=== PATIENT | male | born 1945 | race Caucasian/White ===

== ENCOUNTER 2022-03-13 20:26 | Inpatient (IN) ==
--- NOTE | 2022-03-13 20:59 | DR.ABDMALE ---
HPI Time seen Time Seen by Provider: 03/13/22 20:59 PCP Primary Care Physician: RIMA Complaint Chief Complaint Doctors Comments: 76 y/o male presents for evaluation. Was fine yesterday. Started having abdominal pain this am. Has steadily progressed all day, worsened tonight. + nausea, one episode of vomiting on arrival to the ER. Last BM normal, last pm. No fever, chills, urinary difficulty. No h/o previous abd surgeries. Denies recent illness. Chief Complaint:: PT C/O MID AND LEFT ABD PAIN WITH N/V X 1 DAY. COVID-19 Coronavirus risk:travel/contact w/high risk person: No Has patient experienced Coronavirus symptoms: No Reviewed Nurses Notes Review: Yes Source History provided by:: Patient Mode of arrival Mode of Arrival: Ambulatory Timing Onset of Chief Complaint: 03/13/22 PMH PMH Past Medical History: Yes Past Medical History: Dyslipidemia Past Surgical History: No Family History History of Family Medical Conditions: No Social History Does patient currently use any type of tobacco product: No Have you used tobacco products in the last 12 months: No Type of Tobacco Use: None Does any household member use tobacco: No Alcohol Use: None Do you use any recreational Drugs:: No Lives With: Alone Lives Where: Home Travel Risk Coronavirus risk:travel/contact w/high risk person: No Has patient experienced Coronavirus symptoms: No Infectious screening In the last 2 months have you had wt loss of >10#?: NO Have you had fever, night sweats or hemotysis?: No Have you traveled outside the country in the last 6 months?: No Isolation: Standard ROS Review of Systems Constitutional: No Symptoms Reported Eyes: No Symptoms Reported ENTM: No Symptoms Reported Respiratoy: No Symptoms Reported Cardiovascular: No Symptoms Reported Gastrointestinal/Abdominal: See HPI Genitourinary: No Symptoms Reported Neurological: No Symptoms Reported Musculoskeletal: No Symptoms Reported Integumentary: No Symptoms Reported Hematologic/Lymphatic: No Symptoms Reported Psychiatric: No Symptoms Reported All Other Systems: Reviewed and Negative PE Vital Signs Vital Signs: Temp Pulse Resp BP Pulse Ox O2 Del Method 03/13/22 21:49 18 03/13/22 21:19 18 03/13/22 20:40 97.6 F 59 L 18 159/83 97 Room Air General General Appearance: Alert and In No Apparent Distress Eyes Eye exam: PERRL and EOMI ENT ENT Exam: Mucous Membranes Moist Neck Neck Exam: Normal Inspection and Full ROM Respiratory Respiratory Exam: Normal Lung Sounds Bilat; negative Accessory Muscle Use or Respiratory Distress Cardiovascular Cardiovascular Exam: Regular Rate, Normal Rhythm and Normal Heart Sounds Abdominal Exam Abdominal Exam: Normal Bowel Sounds, Soft and Tenderness (RUQ/RLQ, with guarding, no rebound.) Back Back Exam: Normal Inspection; negative (R) CVA Tenderness or (L) CVA Tenderness Extremeties Extremities Exam: Normal Inspection and Full ROM; negative Edema Neurologic Neurological Exam: Alert, Oriented X3 and CN II-XII Intact; negative Motor Sensory Deficit Skin Skin Exam: Warm and Dry MDM Differential Diagnosis Differential Diagnosis: Appendicitis, Cholcystitis, Cholelethiasis, Diverticular disease, Gastroenteritis, Urinary tract infection and Urolithiasis COURSE Treatment Treatment: Pt with R sided abdominal pain - RUQ/RLQ. W/u initiated. Givne iV fluids, IV zofran/morphine. 2317 - pt feeling better, + bull ladle tender on the R side. Labs acceptable. CT of the abd/pelvis done with IV contrast. + distended stomach, + loops of small bowel with air fluid levels, concerning for SBO. Pt with no previous h/o abdominal surgery. Will recommend NG tube to decompress the stomach, small bowels. Will admit for observation. Discussed with Dr Chacon, accepts the admission. ROR Labs Reviewed Laboratory Results Reviewed?: Yes Result Diagrams: 03/13/22 21:10 03/13/22 21:10 Laboratory: WBC 10.0 X10^3/uL (3.6-10.0) 03/13/22 21:10 RBC 4.88 X10^6/uL (4.7-6.0) 03/13/22 21:10 Hgb 14.9 g/dL (13.5-18.0) 03/13/22 21:10 Hct 42.3 % (42.0-54.0) 03/13/22 21:10 MCV 86.8 fL (80.0-100.0) 03/13/22 21:10 MCH 30.6 pg (27.0-34.0) 03/13/22 21:10 MCHC 35.2 g/dL (33.0-35.0) H 03/13/22 21:10 RDW 13.1 % (11.6-16.5) 03/13/22 21:10 Plt Count 248 X10^3/uL (150.0-450.0) 03/13/22 21:10 MPV 8.0 fL (7.4-11.0) 03/13/22 21:10 Neut % (Auto) 63.1 % (42.0-75.0) 03/13/22 21:10 Lymph % (Auto) 25.1 % (21.0-51.0) 03/13/22 21:10 [place] % (Auto) 8.9 % (0.0-13.0) 03/13/22 21:10 Eos % (Auto) 2.0 % (0.9-2.9) 03/13/22 21:10 Baso % (Auto) 0.9 % (0.2-1.0) 03/13/22 21:10 Neut # (Auto) 6.3 x10^3/uL (2.2-4.8) H 03/13/22 21:10 Lymph # (Auto) 2.5 X10^3/uL (1.3-2.9) 03/13/22 21:10 [place] # (Auto) 0.9 x10^3/uL (0.3-0.8) H 03/13/22 21:10 Eos # (Auto) 0.2 x10^3/uL (0.0-0.2) 03/13/22 21:10 Baso # (Auto) 0.1 X10^3/uL (0.0-0.1) 03/13/22 21:10 Absolute Nucleated RBC 0.0 /100WBC 03/13/22 21:10 Sodium 143 mmol/L (136-145) 03/13/22 21:10 Corrected Sodium 144 mmol/L (136-145) 03/13/22 21:10 Potassium 4.1 mmol/L (3.5-5.1) 03/13/22 21:10 Chloride 103 mmol/L (98-107) 03/13/22 21:10 Carbon Dioxide 30.8 mmol/L (21-32) 03/13/22 21:10 BUN 22 mg/dL (7-18) H 03/13/22 21:10 Creatinine 1.35 mg/dL (0.70-1.30) H 03/13/22 21:10 Est GFR (MDRD) Af Amer > 60 (>60) 03/13/22 21:10 Est GFR (MDRD) Non-Af 55 (>60) L 03/13/22 21:10 Glucose 130 mg/dL (65-99) H 03/13/22 21:10 Calcium 9.0 mg/dL (8.5-10.1) 03/13/22 21:10 Corrected Calcium TNP 03/13/22 21:10 Total Bilirubin 0.50 mg/dL (0.2-1.0) 03/13/22 21:10 AST 20 Units/L (15-37) 03/13/22 21:10 ALT 20 Units/L (12-78) 03/13/22 21:10 Alkaline Phosphatase 45 Units/L (46-116) L 03/13/22 21:10 Total Protein 7.5 g/dL (6.4-8.2) 03/13/22 21:10 Albumin 4.4 g/dL (3.4-5.0) 03/13/22 21:10 Globulin 3.1 g/dL (2.5-4.5) 03/13/22 21:10 Albumin/Globulin Ratio 1.4 Ratio (1.1-2.1) 03/13/22 21:10 Lipase 80 Units/L (73-393) 03/13/22 21:10 Specimen Type Clean catch urine 03/13/22 22: Urine Color Pale yellow (YELLOW) 03/13/22: Urine Appearance Clear (CLEAR) 03/13/22 22: Urine pH 5.0 (5.0 - 8.0) 03/13/22 22: Ur Specific [place] 1.020 (1.000-1.030) 03/13/22 22: Urine Protein Negative (NEGATIVE) 03/13/22 22: Urine Glucose (UA) Negative (NEGATIVE) 03/13/22 22: Urine Ketones Negative (NEGATIVE) 03/13/22 22: Urine Blood Negative (NEGATIVE) 03/13/22 22: Urine Nitrite Negative (NEGATIVE) 03/13/22 22: Urine Bilirubin Negative (NEGATIVE) 03/13/22 22: Urine Urobilinogen Normal (NORMAL) 03/13/22 22:27 Ur Leukocyte Esterase Negative (NEGATIVE) 03/13/22 22:27 Opioid Opioid Risk Tool Age (Rk box if 16-45): No History of Preadolescent Sexual Abuse: No Total: 0 Total Score Risk Category: Low Risk Copyright: Juan SWEENEY predicting aberrant behaviors Discharge Plan Diagnosis Discharge Problem: Small bowel obstruction Discharge Plan Patient Disposition: ADMITTED INPATIENT Condition: Stable Health Concerns: Post Hospitalization: new medications and changes needed to prevent readmission or further decline. Pt educated and given instructions on all concerns. Plan of Treatment: Continue with present treatment and follow up plan. Pt is to keep follow up appointment as instructed and take medications as ordered. Orders to Discharge Patient Discharge Orders: Transfer (Routine); Ordered 03/13/22 Ordered By: Deric Kirby Follow ups/Referrals Follow ups/Referrals: WILNER PAUL [Primary Care Provider] - 3 days
[2022-03-13] MEDS ORDERED: ZOFRAN INJ 4 MG VIAL IVP ONE (21:03)
[2022-03-13] MEDS ORDERED: MORPHINE SULFATE INJ 4 MG IVP ONE (21:03)
[2022-03-13] MEDS ORDERED: NS 500 ML IV 500 ML IV ONE ×2 (21:04→21:06)
[2022-03-13] MEDS ORDERED: MORPHINE SULFATE INJ 4 MG ONE (21:06)
[2022-03-13] MEDS ORDERED: ZOFRAN INJ 4 MG VIAL ONE (21:06)
[2022-03-13 21:31] LABS: BASOPHILS # (AUTO) 0.1 X10^3/uL (0.0-0.1); BASOPHILS % (AUTO) 0.9 % (0.2-1.0); EOSINOPHILS # (AUTO) 0.2 x10^3/uL (0.0-0.2); HEMATOCRIT 42.3 % (42.0-54.0); HEMOGLOBIN 14.9 g/dL (13.5-18.0); LYMPHOCYTES # (AUTO) 2.5 X10^3/uL (1.3-2.9); LYMPHOCYTES % (AUTO) 25.1 % (21.0-51.0); MEAN CORPUSCULAR HEMOGLOBIN 30.6 pg (27.0-34.0); MEAN CORPUSCULAR HGB CONC 35.2 g/dL (33.0-35.0); MEAN CORPUSCULAR VOLUME 86.8 fL (80.0-100.0); MONOCYTES # (AUTO) 0.9 x10^3/uL (0.3-0.8); MONOCYTES % (AUTO) 8.9 % (0.0-13.0); NEUTROPHILS # (AUTO) 6.3 x10^3/uL (2.2-4.8); NEUTROPHILS % (AUTO) 63.1 % (42.0-75.0); RED BLOOD COUNT 4.88 X10^6/uL (4.7-6.0); RED CELL DISTRIBUTION WIDTH 13.1 % (11.6-16.5)
[2022-03-13 21:36] LABS: ALANINE AMINOTRANSFERASE 20 Units/L (12-78); ALBUMIN 4.4 g/dL (3.4-5.0); ALKALINE PHOSPHATASE 45 Units/L (46-116); ASPARTATE AMINO TRANSFERASE 20 Units/L (15-37); BLOOD UREA NITROGEN 22 mg/dL (7-18); CARBON DIOXIDE 30.8 mmol/L (21-32); CHLORIDE 103 mmol/L (98-107); COR NA(FOR HYPERGLY) 144 mmol/L (136-145); CREATININE 1.35 mg/dL (0.70-1.30); LIPASE 80 Units/L (73-393); SODIUM 143 mmol/L (136-145); TOTAL PROTEIN 7.5 g/dL (6.4-8.2); eGFR NON BLACK RACES 55 (>60)
[2022-03-13 22:33] LABS: BILIRUBIN,URINE NEGATIVE (NEGATIVE); BLOOD/HEMOGLOBIN,URINE NEGATIVE (NEGATIVE); GLUCOSE, URINE NEGATIVE (NEGATIVE); KETONES,URINE NEGATIVE (NEGATIVE); LEUKOCYTE ESTERASE ,URINE NEGATIVE (NEGATIVE); NITRITES,URINE NEGATIVE (NEGATIVE); PROTEIN,URINE NEGATIVE (NEGATIVE); UROBILINOGEN,URINE NORMAL (NORMAL)
[2022-03-13 22:39] LABS: APPEARANCE,URINE CLEAR (CLEAR); COLOR,URINE PALE YELLOW (YELLOW)
--- NOTE | 2022-03-13 22:41 | CT ---
HISTORYPT C/O MID AND LEFT ABD PAIN WITH N/V X 1 DAY.STUDYABDOMEN/PELVIS WITH CONCOMPARISONNoneTECHNIQUEMultiple axial images of the abdomen and pelvis were obtained from the lung bases to the pubic symphysis after the administration of IV contrast. Dose reduction techniques including Automated Exposure Control (AEC) and adjustment of mA and kV were utilized.FINDINGSThe visualized portions of the lung bases are unremarkable . The liver, spleen, pancreas, kidneys, and adrenal glands are unremarkable in their CT appearance. The gallbladder is unremarkable in its CT appearance . No significant mesenteric lymphadenopathy or stranding can be observed. No free fluid or free air is seen within the abdomen. The appendix is not visualized. The stomach is moderately distended and fluid-filled. There are multiple moderately dilated loops of small bowel within the proximal and mid abdomen consistent with obstruction. The distal small bowel is normal in caliber.. The colon is unremarkable. Specifically, there is no diverticulosis noted within the sigmoid colon. The urinary bladder is grossly unremarkable. The prostate gland is enlarged and indents the floor of the urinary bladder. The bony structures are grossly intact.IMPRESSIONMultiple mildly dilated loops of small bowel within the proximal mid abdomen consistent with obstruction.Prostate gland hypertrophy.Electronically signed by: Stanley Mcgovern (Mar 13, 2022 22:39:26)
[2022-03-14] MEDS ORDERED: ZOFRAN INJ 4 MG VIAL IVP PRN (00:11)
[2022-03-14] MEDS: PROTONIX INJ 40 MG VIAL IVP SCH ×2 (01:06→09:21)
[2022-03-14] MEDS: D5 1/2 NS 1,000 ML 1,000 ML IV SCH ×3 (01:06→16:56)
[2022-03-14 01:32] VITALS: BMI 28.4
--- NOTE | 2022-03-14 01:42 | RAD ---
HISTORYNG TUBE PLACEMENT ; GDSTUDYKUBCOMPARISONNoneFINDIN GSEvaluation of the abdomen demonstrates a normal bowel gas pattern. There is a nasogastric tube with its tip in the proximal stomach. The side hole is near the GE junction and should be further advanced for more optimal position. No pathological soft tissue mass or calcification can be observed. The bony structures are grossly intact. Lung bases are clear. TheIMPRESSIONNG tube tip in the proximal stomach; the tube should be further advanced for more optimal placement.Electronically signed by: Stanley Mcgovern (Mar 14, 2022 01:40:03)
[2022-03-14] MEDS: MORPHINE SULFATE INJ 4 MG IVP PRN ×2 (01:45→16:46)
[2022-03-14 06:04] LABS: BASOPHILS % (AUTO) 0.4 % (0.2-1.0); EOSINOPHILS # (AUTO) 0.1 x10^3/uL (0.0-0.2); EOSINOPHILS % (AUTO) 1.1 % (0.9-2.9); HEMATOCRIT 38.2 % (42.0-54.0); LYMPHOCYTES # (AUTO) 1.5 X10^3/uL (1.3-2.9); LYMPHOCYTES % (AUTO) 13.5 % (21.0-51.0); MEAN CORPUSCULAR HEMOGLOBIN 29.5 pg (27.0-34.0); MEAN CORPUSCULAR VOLUME 86.7 fL (80.0-100.0); MEAN PLATELET VOLUME 8.3 fL (7.4-11.0); MONOCYTES % (AUTO) 8.6 % (0.0-13.0); NEUTROPHILS # (AUTO) 8.4 x10^3/uL (2.2-4.8); NEUTROPHILS % (AUTO) 76.4 % (42.0-75.0); RED CELL DISTRIBUTION WIDTH 13.3 % (11.6-16.5)
[2022-03-14 06:12] LABS: ALANINE AMINOTRANSFERASE 19 Units/L (12-78); ALBUMIN 3.7 g/dL (3.4-5.0); ALKALINE PHOSPHATASE 43 Units/L (46-116); ASPARTATE AMINO TRANSFERASE 15 Units/L (15-37); BLOOD UREA NITROGEN 18 mg/dL (7-18); CALCIUM 8.4 mg/dL (8.5-10.1); CARBON DIOXIDE 29.2 mmol/L (21-32); CHLORIDE 105 mmol/L (98-107); COR NA(FOR HYPERGLY) 142 mmol/L (136-145); CREATININE 1.24 mg/dL (0.70-1.30); SODIUM 141 mmol/L (136-145); TOTAL PROTEIN 6.4 g/dL (6.4-8.2); eGFR NON BLACK RACES > 60 (>60)
--- NOTE | 2022-03-14 10:29 | RAD ---
PROCEDURE: Abdomen X-ray 1 View .HISTORY: NG tube placement.TECHNIQUE: AP supine abdomen view .COMPARISON: 03/13/2022.TECHNICAL QUALITY: Satisfactory .FINDINGS:NG tube tip in the body of the stomach in good position.Some gases distension large and small bowel may represent ileus increased compared to previous day's study.IMPRESSION:1. Good NG-tube placement.2. Mild increase and ileus.Electronically signed by: Santino Patiño (Mar 14, 2022 10:27:42)
[2022-03-14] MEDS: LOVENOX INJ 40 MG SYR SC SCH (11:52)
--- NOTE | 2022-03-14 18:51 | RAD ---
EXAM: ABDOMEN X-RAY (or KUB)HISTORY: NG tube placement verification.TECHNIQUE: Supine viewCOMPARISON: None.FINDINGS:A nasogastric tube is noted with the distal tip within the proximal body of the stomach, approximately 6 cm distal to the gastroesophageal junction (with the proximal sidehole approximately 2 cm distal to the gastroesophageal junction).There are up to 3.7 cm dilated air-filled small bowel loops and up to 4.9 cm dilated air and stool-filled large bowel loops; DDx includes ileus, and constipation with obstipation (rectum excluded from [id number]) in the appropriate clinical setting. There is no gross organomegaly, free intraperitoneal air, or suspicious calcifications seen. The visualized bony structures are within normal limits.IMPRESSION:1. A nasogastric tube is noted with the distal tip within the proximal body of the stomach, approximately 6 cm distal to the gastroesophageal junction (with the proximal sidehole approximately 2 cm distal to the gastroesophageal junction).2. Up to 3.7 cm dilated air-filled small bowel loops and up to 4.9 cm dilated air and stool-filled large bowel loops; DDx includes ileus, and constipation with obstipation (rectum excluded from [id number]) in the appropriate clinical setting.Electronically signed by: Daquan Rogers (Mar 14, 2022 18:48:55)
[2022-03-15 06:20] LABS: ALANINE AMINOTRANSFERASE 17 Units/L (12-78); ALBUMIN 3.5 g/dL (3.4-5.0); ALKALINE PHOSPHATASE 41 Units/L (46-116); ASPARTATE AMINO TRANSFERASE 15 Units/L (15-37); BASOPHILS % (AUTO) 0.2 % (0.2-1.0); BLOOD UREA NITROGEN 12 mg/dL (7-18); CALCIUM 8.5 mg/dL (8.5-10.1); CARBON DIOXIDE 29.5 mmol/L (21-32); CHLORIDE 103 mmol/L (98-107); COR NA(FOR HYPERGLY) 142 mmol/L (136-145); CREATININE 1.24 mg/dL (0.70-1.30); EOSINOPHILS # (AUTO) 0.2 x10^3/uL (0.0-0.2); EOSINOPHILS % (AUTO) 1.6 % (0.9-2.9); HEMATOCRIT 39.3 % (42.0-54.0); HEMOGLOBIN 13.6 g/dL (13.5-18.0); LYMPHOCYTES # (AUTO) 2.5 X10^3/uL (1.3-2.9); MEAN CORPUSCULAR HEMOGLOBIN 30.2 pg (27.0-34.0); MEAN CORPUSCULAR HGB CONC 34.6 g/dL (33.0-35.0); MEAN CORPUSCULAR VOLUME 87.3 fL (80.0-100.0); MEAN PLATELET VOLUME 8.3 fL (7.4-11.0); MONOCYTES # (AUTO) 1.4 x10^3/uL (0.3-0.8); MONOCYTES % (AUTO) 11.1 % (0.0-13.0); NEUTROPHILS # (AUTO) 8.4 x10^3/uL (2.2-4.8); NEUTROPHILS % (AUTO) 67.1 % (42.0-75.0); RED BLOOD COUNT 4.51 X10^6/uL (4.7-6.0); RED CELL DISTRIBUTION WIDTH 13.3 % (11.6-16.5); SODIUM 141 mmol/L (136-145); TOTAL PROTEIN 6.4 g/dL (6.4-8.2); WHITE BLOOD COUNT 12.5 X10^3/uL (3.6-10.0); eGFR NON BLACK RACES > 60 (>60)
[2022-03-15] MEDS: D5 1/2 NS 1,000 ML 1,000 ML IV SCH ×3 (08:36→16:41)
[2022-03-15] MEDS: LOVENOX INJ 40 MG SYR SC SCH (08:37)
[2022-03-15] MEDS: PROTONIX INJ 40 MG VIAL IVP SCH (08:37)
[2022-03-15] MEDS ORDERED: FLEET ENEMA ADULT PR ONE (10:19)
--- NOTE | 2022-03-15 11:06 | DR.PROGNOT ---
Hospital Progress Notes - Progress Note for Day of: Progress Note Date: 03/15/22 - Chief Complaint Chief Complaint: less abdominal pain .. no BM yet , passing flatus .. NGT drainage 300 cc . WBC 12.5 normal Lytes and LFT .. afebrile .. - Past Medical Family Social History Past Med/Fam/Surg Hx: No changes since H&P Allergies: Allergies No Known Drug Allergies Allergy (Verified 03/14/22 03:55) - Review Of Systems ROS: No change since H&P - Vital Signs Vital Signs: Temperature 98.9 F Pulse Rate [Left] 56 Pulse Rate 59 Respiratory Rate 18 Blood Pressure [Left Arm] 161/72 Blood Pressure 159/83 O2 Sat by Pulse Oximetry 93 - Physical Exam Oriented: Normal GI:Palpation: Other (moderate distended abdomen , tympanic , hypoactive BS . mild tenderness .. BS hypoactive .. ) Speech Pattern: Clear, Appropriate - Laboratory and Diagnostics Result Diagrams: 03/15/22 05:30 03/15/22 05:30 Labs: Laboratory WBC 12.5 X10^3/uL (3.6-10.0) H 03/15/22 05:30 RBC 4.51 X10^6/uL (4.7-6.0) L 03/15/22 05:30 Hgb 13.6 g/dL (13.5-18.0) 03/15/22 05:30 Hct 39.3 % (42.0-54.0) L 03/15/22 05:30 MCV 87.3 fL (80.0-100.0) 03/15/22 05:30 MCH 30.2 pg (27.0-34.0) 03/15/22 05:30 MCHC 34.6 g/dL (33.0-35.0) 03/15/22 05:30 RDW 13.3 % (11.6-16.5) 03/15/22 05:30 Plt Count 212 X10^3/uL (150.0-450.0) 03/15/22 05:30 MPV 8.3 fL (7.4-11.0) 03/15/22 05:30 Neut % (Auto) 67.1 % (42.0-75.0) 03/15/22 05:30 Lymph % (Auto) 20.0 % (21.0-51.0) L 03/15/22 05:30 [place] % (Auto) 11.1 % (0.0-13.0) 03/15/22 05:30 Eos % (Auto) 1.6 % (0.9-2.9) 03/15/22 05:30 Baso % (Auto) 0.2 % (0.2-1.0) 03/15/22 05:30 Neut # (Auto) 8.4 x10^3/uL (2.2-4.8) H 03/15/22 05:30 Lymph # (Auto) 2.5 X10^3/uL (1.3-2.9) 03/15/22 05:30 [place] # (Auto) 1.4 x10^3/uL (0.3-0.8) H 03/15/22 05:30 Eos # (Auto) 0.2 x10^3/uL (0.0-0.2) 03/15/22 05:30 Baso # (Auto) 0.0 X10^3/uL (0.0-0.1) 03/15/22 05:30 Absolute Nucleated RBC 0.1 /100WBC 03/15/22 05:30 Sodium 141 mmol/L (136-145) 03/15/22 05:30 Corrected Sodium 142 mmol/L (136-145) 03/15/22 05:30 Potassium 4.1 mmol/L (3.5-5.1) 03/15/22 05:30 Chloride 103 mmol/L (98-107) 03/15/22 05:30 Carbon Dioxide 29.5 mmol/L (21-32) 03/15/22 05:30 BUN 12 mg/dL (7-18) 03/15/22 05:30 Creatinine 1.24 mg/dL (0.70-1.30) 03/15/22 05:30 Est GFR (MDRD) Af Amer > 60 (>60) 03/15/22 05:30 Est GFR (MDRD) Non-Af > 60 (>60) 03/15/22 05:30 Glucose 128 mg/dL (65-99) H 03/15/22 05:30 Calcium 8.5 mg/dL (8.5-10.1) 03/15/22 05:30 Corrected Calcium TNP 03/15/22 05:30 Total Bilirubin 0.90 mg/dL (0.2-1.0) 03/15/22 05:30 AST 15 Units/L (15-37) 03/15/22 05:30 ALT 17 Units/L (12-78) 03/15/22 05:30 Alkaline Phosphatase 41 Units/L (46-116) L 03/15/22 05:30 Total Protein 6.4 g/dL (6.4-8.2) 03/15/22 05:30 Albumin 3.5 g/dL (3.4-5.0) 03/15/22 05:30 Globulin 2.9 g/dL (2.5-4.5) 03/15/22 05:30 Albumin/Globulin Ratio 1.2 Ratio (1.1-2.1) 03/15/22 05:30 Lipase 80 Units/L (73-393) 03/13/22 21:10 Specimen Type Clean catch urine 03/13/22 22: Urine Color Pale yellow (YELLOW) 03/13/22 22: Urine Appearance Clear (CLEAR) 03/13/22 22: Urine pH 5.0 (5.0 - 8.0) 03/13/22 22: Ur Specific [place] 1.020 (1.000-1.030) 03/13/22 22: Urine Protein Negative (NEGATIVE) 03/13/22 22: Urine Glucose (UA) Negative (NEGATIVE) 03/13/22 22: Urine Ketones Negative (NEGATIVE) 03/13/22 22: Urine Blood Negative (NEGATIVE) 03/13/22 22: Urine Nitrite Negative (NEGATIVE) 03/13/22 22: Urine Bilirubin Negative (NEGATIVE) 03/13/22 22: Urine Urobilinogen Normal (NORMAL) 03/13/22: Ur Leukocyte Esterase Negative (NEGATIVE) 03/13/22: - Assessment and Plan 3: ileus , possible partial SBO . to review abdominal X Ray . OOB , same IVF , fleet enema . repeat KUB in am - Problem Patient Problems: Patient Problems Small bowel obstruction (Acute) K56.609
--- NOTE | 2022-03-15 11:56 | DR.CONSULT ---
CONSULT Consultation for Day of: Date: 03/14/22 Chief Complaint Chief Complaint: abdominal pain Allergies Allergies Allergy/AdvReac Type Severity Reaction Status Date / Time No Known Drug Allergies Allergy Verified 03/14/22 03:55 History of Present Illness History of Present Illness: Mr Christianson is a 76y/o male with a PMH of HLD and BPH who presented with worsening abdominal pain and distension. He states it started a few days ago and continue to get worse. He had some nausea, no vomiting or diarrhea. He has a hx of constipation, last BM a day prior to admission. In the ER, CTAP showed Multiple mildly dilated loops of small bowel within the proximal mid abdomen consistent with obstruction. Dr Hines was consulted for admission. Medicine consulted for further evaluation. Patient currently has NGT in place. He states his abdominal pain and distension is slightly better. He has not had a BM. He denies any prev abdominal surgeries. He had a colonoscopy last year by Dr Tariq. Denies recent wt loss, changes in bowel habits, normal appetite. Patient does not take any laxatives. Labs/imaging reviewed Plan: continue NPO status, keep NGT. Follow KUB in the AM. Follow pending labs including CEA. Continue pain control and anti-emetics. Continue hydration. Monitor AM labs/imaging. Past Medical History Past Medical History: Dyslipidemia Past Surgical History Surgical History: Other Family History Family Medical History: Hypertension Social History Does patient currently use any type of tobacco product: No Have you used tobacco products in the last 12 months: No Type of Tobacco Use: None Does any household member use tobacco: No Alcohol Use: None Medications Home Medications: No Known Drug Allergies Allergy (Verified 03/14/22 03:55) CONTINUE taking the following medications lovastatin 40 mg tablet 40 mg PO QPM 03/13/22 [History] tamsulosin 0.4 mg capsule (Flomax) 0.4 mg PO QHS 03/13/22 [History] Review of Systems Constitutional: No Symptoms Reported Eyes: No Symptoms Reported ENT: No Symptoms Reported Respiratory: No Symptoms Reported Cardiovascular: No Symptoms Reported Gastrointestinal: Nausea, Abdominal Pain and Constipation Musculoskeletal: No Symptoms Reported Skin: No Symptoms Reported Neurological: No Symptoms Reported Physical Exam Vital Signs: Temperature 98.9 F Pulse Rate [Left] 56 Pulse Rate 59 Respiratory Rate 18 Blood Pressure [Left Arm] 161/72 Blood Pressure 159/83 O2 Sat by Pulse Oximetry 93 Oriented: Normal Eyes: Normal Ear: Normal Nose: Normal Throat: Normal Respiratory: Clear Throughout Cardiovascular: Normal Auscultation: Bowel Sounds: Decreased Tenderness: Epigastric, Periumbilical and Mild Skin: Normal Musculoskeletal: Normal Psychiatric: Normal Mood Description: Calm Affect: Normal Speech Pattern: Clear and Appropriate Plan (1) Small bowel obstruction: Status: Acute (2) Constipation: Status: Acute (3) HLD (hyperlipidemia): Status: Acute (4) BPH (benign prostatic hyperplasia): Status: Acute
--- NOTE | 2022-03-15 12:03 | PCM.PROG ---
Progress Note Progress Note for Day of Date of Exam: 03/15/22 Subjective Subjective: Patient seen at bedside, no events overnight. He reports feeling better. He states abdominal pain and distension has improved. Denies nausea or BM. He is passing gas. KUB last night showed dilated loops with stool in the large colon. Labs reviewed Plan: follow Dr Hines's recommendation. Follow KUB results. Continue NGT for now. Continue pain control and anti-emetics. CEA pending. Monitor AM labs/imaging. Past Medical Family Social History Past Med/Fam/Surg Hx: No changes since H&P Allergies: Allergies No Known Drug Allergies Allergy (Verified 03/14/22 03:55) Review of Systems ROS: No change since H&P Vital Signs and I&O's Vital Signs: Temperature 98.9 F Pulse Rate [Left] 56 Pulse Rate 59 Respiratory Rate 18 Blood Pressure [Left Arm] 161/72 Blood Pressure 159/83 O2 Sat by Pulse Oximetry 93 Intake and Output: Intake & Output 03/12/22 03/13/22 03/14/22 03/15/22 23:59 23:59 23:59 23:59 Intake Total 1280 / 1280 875 / 875 Output Total 725 / 725 750 / 750 Balance 555 / 555 125 / 125 Physical Exam Oriented: Normal Eyes: Normal Ear: Normal Nose: Normal Throat: Normal Cardiovascular: Normal Auscultation: Bowel Sounds: Decreased Tenderness: Normal Skin: Normal Musculoskeletal: Normal Psychiatric: Normal Mood Description: Calm Affect: Normal Speech Pattern: Clear and Appropriate Laboratory and Diagnostics Result Diagrams: 03/15/22 05:30 03/15/22 05:30 Labs: Laboratory WBC 12.5 X10^3/uL (3.6-10.0) H 03/15/22 05:30 RBC 4.51 X10^6/uL (4.7-6.0) L 03/15/22 05:30 Hgb 13.6 g/dL (13.5-18.0) 03/15/22 05:30 Hct 39.3 % (42.0-54.0) L 03/15/22 05:30 MCV 87.3 fL (80.0-100.0) 03/15/22 05:30 MCH 30.2 pg (27.0-34.0) 03/15/22 05:30 MCHC 34.6 g/dL (33.0-35.0) 03/15/22 05:30 RDW 13.3 % (11.6-16.5) 03/15/22 05:30 Plt Count 212 X10^3/uL (150.0-450.0) 03/15/22 05:30 MPV 8.3 fL (7.4-11.0) 03/15/22 05:30 Neut % (Auto) 67.1 % (42.0-75.0) 03/15/22 05:30 Lymph % (Auto) 20.0 % (21.0-51.0) L 03/15/22 05:30 [place] % (Auto) 11.1 % (0.0-13.0) 03/15/22 05:30 Eos % (Auto) 1.6 % (0.9-2.9) 03/15/22 05:30 Baso % (Auto) 0.2 % (0.2-1.0) 03/15/22 05:30 Neut # (Auto) 8.4 x10^3/uL (2.2-4.8) H 03/15/22 05:30 Lymph # (Auto) 2.5 X10^3/uL (1.3-2.9) 03/15/22 05:30 [place] # (Auto) 1.4 x10^3/uL (0.3-0.8) H 03/15/22 05:30 Eos # (Auto) 0.2 x10^3/uL (0.0-0.2) 03/15/22 05:30 Baso # (Auto) 0.0 X10^3/uL (0.0-0.1) 03/15/22 05:30 Absolute Nucleated RBC 0.1 /100WBC 03/15/22 05:30 Sodium 141 mmol/L (136-145) 03/15/22 05:30 Corrected Sodium 142 mmol/L (136-145) 03/15/22 05:30 Potassium 4.1 mmol/L (3.5-5.1) 03/15/22 05:30 Chloride 103 mmol/L (98-107) 03/15/22 05:30 Carbon Dioxide 29.5 mmol/L (21-32) 03/15/22 05:30 BUN 12 mg/dL (7-18) 03/15/22 05:30 Creatinine 1.24 mg/dL (0.70-1.30) 03/15/22 05:30 Est GFR (MDRD) Af Amer > 60 (>60) 03/15/22 05:30 Est GFR (MDRD) Non-Af > 60 (>60) 03/15/22 05:30 Glucose 128 mg/dL (65-99) H 03/15/22 05:30 Calcium 8.5 mg/dL (8.5-10.1) 03/15/22 05:30 Corrected Calcium TNP 03/15/22 05:30 Total Bilirubin 0.90 mg/dL (0.2-1.0) 03/15/22 05:30 AST 15 Units/L (15-37) 03/15/22 05:30 ALT 17 Units/L (12-78) 03/15/22 05:30 Alkaline Phosphatase 41 Units/L (46-116) L 03/15/22 05:30 Total Protein 6.4 g/dL (6.4-8.2) 03/15/22 05:30 Albumin 3.5 g/dL (3.4-5.0) 03/15/22 05:30 Globulin 2.9 g/dL (2.5-4.5) 03/15/22 05:30 Albumin/Globulin Ratio 1.2 Ratio (1.1-2.1) 03/15/22 05:30 Lipase 80 Units/L (73-393) 03/13/22 21:10 Specimen Type Clean catch urine 03/13/22 22: Urine Color Pale yellow (YELLOW) 03/13/22 22: Urine Appearance Clear (CLEAR) 03/13/22 22: Urine pH 5.0 (5.0 - 8.0) 03/13/22: Ur Specific [place] 1.020 (1.000-1.030) 03/13/22 22: Urine Protein Negative (NEGATIVE) 03/13/22 22: Urine Glucose (UA) Negative (NEGATIVE) 03/13/22 22: Urine Ketones Negative (NEGATIVE) 03/13/22 22: Urine Blood Negative (NEGATIVE) 03/13/22 22: Urine Nitrite Negative (NEGATIVE) 03/13/22 22:27 Urine Bilirubin Negative (NEGATIVE) 03/13/22 22:27 Urine Urobilinogen Normal (NORMAL) 03/13/22 22:27 Ur Leukocyte Esterase Negative (NEGATIVE) 03/13/22 22:27 Plan (1) Small bowel obstruction: Status: Acute (2) Constipation: Status: Acute (3) HLD (hyperlipidemia): Status: Acute (4) BPH (benign prostatic hyperplasia): Status: Acute
--- NOTE | 2022-03-15 16:28 | RAD ---
HISTORYsmall bowel obstruction. Hypertension.[id number]/04/202 2FINDINGSGas is present and dilated small bowel measuring up to 3.8 cm. But there is still a moderate amount of air in nondilated colon. Findings suggest a partial small bowel obstruction.I do not see a significant change in the amount of bowel gas when compared to yesterday.Enteric tube is in the upper left abdomen, likely in the stomach. No pneumoperitoneum.IMPRESSION1. Unchanged small bowel obstructionElectronically signed by: Sharad Duong (Mar 15, 2022 16:27:21)
[2022-03-16] MEDS: D5 1/2 NS 1,000 ML 1,000 ML IV SCH ×3 (00:06→16:51)
[2022-03-16 05:46] LABS: BASOPHILS # (AUTO) 0.1 X10^3/uL (0.0-0.1); BASOPHILS % (AUTO) 1.1 % (0.2-1.0); EOSINOPHILS # (AUTO) 0.3 x10^3/uL (0.0-0.2); EOSINOPHILS % (AUTO) 2.1 % (0.9-2.9); HEMATOCRIT 38.5 % (42.0-54.0); HEMOGLOBIN 13.2 g/dL (13.5-18.0); LYMPHOCYTES # (AUTO) 2.9 X10^3/uL (1.3-2.9); LYMPHOCYTES % (AUTO) 23.4 % (21.0-51.0); MEAN CORPUSCULAR HEMOGLOBIN 29.5 pg (27.0-34.0); MEAN CORPUSCULAR HGB CONC 34.2 g/dL (33.0-35.0); MEAN CORPUSCULAR VOLUME 86.3 fL (80.0-100.0); MEAN PLATELET VOLUME 7.9 fL (7.4-11.0); MONOCYTES # (AUTO) 1.3 x10^3/uL (0.3-0.8); NEUTROPHILS % (AUTO) 63.4 % (42.0-75.0); RED BLOOD COUNT 4.47 X10^6/uL (4.7-6.0); RED CELL DISTRIBUTION WIDTH 12.9 % (11.6-16.5); WHITE BLOOD COUNT 12.5 X10^3/uL (3.6-10.0)
[2022-03-16 05:55] LABS: ALANINE AMINOTRANSFERASE 17 Units/L (12-78); ALBUMIN 3.1 g/dL (3.4-5.0); ALKALINE PHOSPHATASE 39 Units/L (46-116); ASPARTATE AMINO TRANSFERASE 18 Units/L (15-37); BLOOD UREA NITROGEN 10 mg/dL (7-18); CALCIUM 8.3 mg/dL (8.5-10.1); CARBON DIOXIDE 28.6 mmol/L (21-32); CHLORIDE 105 mmol/L (98-107); COR NA(FOR HYPERGLY) 142 mmol/L (136-145); CREATININE 1.21 mg/dL (0.70-1.30); SODIUM 141 mmol/L (136-145); TOTAL PROTEIN 6.2 g/dL (6.4-8.2); eGFR NON BLACK RACES > 60 (>60)
[2022-03-16] MEDS: PROTONIX INJ 40 MG VIAL IVP SCH (08:27)
[2022-03-16] MEDS: LOVENOX INJ 40 MG SYR SC SCH (08:28)
--- NOTE | 2022-03-16 08:56 | DR.PROGNOT ---
Hospital Progress Notes - Progress Note for Day of: Progress Note Date: 03/16/22 - Chief Complaint Chief Complaint: less abdominal pain .. no BM yet , passing flatus .. NGT drainage 300 cc . WBC 12.5 normal Lytes and LFT ..k 4.1. abdominal X Ray more of ileus with air in the rectum. afebrile .. - Past Medical Family Social History Past Med/Fam/Surg Hx: No changes since H&P Allergies: Allergies No Known Drug Allergies Allergy (Verified 03/14/22 03:55) - Review Of Systems ROS: No change since H&P - Vital Signs Vital Signs: Temperature 98.2 F Pulse Rate [Left] 56 Pulse Rate 59 Respiratory Rate 20 Blood Pressure [Left Arm] 172/82 Blood Pressure 159/83 O2 Sat by Pulse Oximetry 94 - Physical Exam Oriented: Normal Eyes: Normal Ear: Normal Nose: Normal Throat: Normal Cardiovascular: Normal GI:Auscultation: Decreased GI:Palpation: Other (moderate distention with soft abdomen , tympanic , hypoactive BS . mild tenderness .. BS hypoactive .. ) GI: Tenderness: Normal Skin: Normal Musculoskeletal: Normal Psychiatric: Normal Mood Description: Calm Affect: Normal Speech Pattern: Clear, Appropriate - Laboratory and Diagnostics Result Diagrams: 03/16/22 05:31 03/16/22 05:31 Labs: Laboratory WBC 12.5 X10^3/uL (3.6-10.0) H 03/16/22 05:31 RBC 4.47 X10^6/uL (4.7-6.0) L 03/16/22 05:31 Hgb 13.2 g/dL (13.5-18.0) L 03/16/22 05:31 Hct 38.5 % (42.0-54.0) L 03/16/22 05:31 MCV 86.3 fL (80.0-100.0) 03/16/22 05:31 MCH 29.5 pg (27.0-34.0) 03/16/22 05:31 MCHC 34.2 g/dL (33.0-35.0) 03/16/22 05:31 RDW 12.9 % (11.6-16.5) 03/16/22 05:31 Plt Count 210 X10^3/uL (150.0-450.0) 03/16/22 05:31 MPV 7.9 fL (7.4-11.0) 03/16/22 05:31 Neut % (Auto) 63.4 % (42.0-75.0) 03/16/22 05:31 Lymph % (Auto) 23.4 % (21.0-51.0) 03/16/22 05:31 [place] % (Auto) 10.0 % (0.0-13.0) 03/16/22 05:31 Eos % (Auto) 2.1 % (0.9-2.9) 03/16/22 05:31 Baso % (Auto) 1.1 % (0.2-1.0) H 03/16/22 05:31 Neut # (Auto) 8.0 x10^3/uL (2.2-4.8) H 03/16/22 05:31 Lymph # (Auto) 2.9 X10^3/uL (1.3-2.9) 03/16/22 05:31 [place] # (Auto) 1.3 x10^3/uL (0.3-0.8) H 03/16/22 05:31 Eos # (Auto) 0.3 x10^3/uL (0.0-0.2) H 03/16/22 05:31 Baso # (Auto) 0.1 X10^3/uL (0.0-0.1) 03/16/22 05:31 Absolute Nucleated RBC 0.0 /100WBC 03/16/22 05:31 Sodium 141 mmol/L (136-145) 03/16/22 05:31 Corrected Sodium 142 mmol/L (136-145) 03/16/22 05:31 Potassium 4.1 mmol/L (3.5-5.1) 03/16/22 05:31 Chloride 105 mmol/L (98-107) 03/16/22 05:31 Carbon Dioxide 28.6 mmol/L (21-32) 03/16/22 05:31 BUN 10 mg/dL (7-18) 03/16/22 05:31 Creatinine 1.21 mg/dL (0.70-1.30) 03/16/22 05:31 Est GFR (MDRD) Af Amer > 60 (>60) 03/16/22 05:31 Est GFR (MDRD) Non-Af > 60 (>60) 03/16/22 05:31 Glucose 125 mg/dL (65-99) H 03/16/22 05:31 Calcium 8.3 mg/dL (8.5-10.1) L 03/16/22 05:31 Corrected Calcium 9.0 mg/dL (8.5-10.1) 03/16/22 05:31 Total Bilirubin 0.80 mg/dL (0.2-1.0) 03/16/22 05:31 AST 18 Units/L (15-37) 03/16/22 05:31 ALT 17 Units/L (12-78) 03/16/22 05:31 Alkaline Phosphatase 39 Units/L (46-116) L 03/16/22 05:31 Total Protein 6.2 g/dL (6.4-8.2) L 03/16/22 05:31 Albumin 3.1 g/dL (3.4-5.0) L 03/16/22 05:31 Globulin 3.1 g/dL (2.5-4.5) 03/16/22 05:31 Albumin/Globulin Ratio 1.0 Ratio (1.1-2.1) L 03/16/22 05:31 Lipase 80 Units/L (73-393) 03/13/22 21:10 Specimen Type Clean catch urine 03/13/22 22: Urine Color Pale yellow (YELLOW) 03/13/22 22: Urine Appearance Clear (CLEAR) 03/13/22 22: Urine pH 5.0 (5.0 - 8.0) 03/13/22: Ur Specific [place] 1.020 (1.000-1.030) 03/13/22 22: Urine Protein Negative (NEGATIVE) 03/13/22 22: Urine Glucose (UA) Negative (NEGATIVE) 03/13/22: Urine Ketones Negative (NEGATIVE) 03/13/22: Urine Blood Negative (NEGATIVE) 03/13/22: Urine Nitrite Negative (NEGATIVE) 03/13/22 22: Urine Bilirubin Negative (NEGATIVE) 03/13/22 22: Urine Urobilinogen Normal (NORMAL) 03/13/22: Ur Leukocyte Esterase Negative (NEGATIVE) 11/03/22 22:27 - Assessment and Plan 3: ileus , possible partial SBO . OOB , same IVF , fleet enema . to D/C NGT and start on clear liquid . repeat KUB in am - Problem Patient Problems: Patient Problems Small bowel obstruction (Acute) K56.943
--- NOTE | 2022-03-16 11:10 | PCM.PROG ---
Progress Note Progress Note for Day of Date of Exam: 03/16/22 Subjective Subjective: Patient seen at bedside, no events overnight. He reports feeling better. Patient had a small BM this morning. KUB yesterday showed ileus, partial SBO. Labs reviewed Plan: Follow Dr Hines's recommendation, NGT removed and patient started on clears. Monitor oral intake. Repeat KUB in the AM. Resume home medications. Continue pain control. Monitor AM labs/imaging. Past Medical Family Social History Past Med/Fam/Surg Hx: No changes since H&P Allergies: Allergies No Known Drug Allergies Allergy (Verified 03/14/22 03:55) Review of Systems ROS: No change since H&P Vital Signs and I&O's Vital Signs: Temperature 98.2 F Pulse Rate [Left] 56 Pulse Rate 59 Respiratory Rate 20 Blood Pressure [Left Arm] 172/82 Blood Pressure 159/83 O2 Sat by Pulse Oximetry 94 Intake and Output: Intake & Output 03/13/22 03/14/22 03/15/22 03/16/22 23:59 23:59 23:59 22:59 Intake Total 1280 / 1280 2836 / 2836 1043 / 1043 Output Total 725 / 725 3200 / 3200 550 / 550 Balance 555 / 555 -364 / -364 493 / 493 Physical Exam Oriented: Normal Eyes: Normal Ear: Normal Nose: Normal Throat: Normal Cardiovascular: Normal Auscultation: Bowel Sounds: Normal Tenderness: Normal Skin: Normal Musculoskeletal: Normal Psychiatric: Normal Mood Description: Calm Affect: Normal Speech Pattern: Clear and Appropriate Laboratory and Diagnostics Result Diagrams: 03/16/22 05:31 03/16/22 05:31 Labs: Laboratory WBC 12.5 X10^3/uL (3.6-10.0) H 03/16/22 05:31 RBC 4.47 X10^6/uL (4.7-6.0) L 03/16/22 05:31 Hgb 13.2 g/dL (13.5-18.0) L 03/16/22 05:31 Hct 38.5 % (42.0-54.0) L 03/16/22 05:31 MCV 86.3 fL (80.0-100.0) 03/16/22 05:31 MCH 29.5 pg (27.0-34.0) 03/16/22 05:31 MCHC 34.2 g/dL (33.0-35.0) 03/16/22 05:31 RDW 12.9 % (11.6-16.5) 03/16/22 05:31 Plt Count 210 X10^3/uL (150.0-450.0) 03/16/22 05:31 MPV 7.9 fL (7.4-11.0) 03/16/22 05:31 Neut % (Auto) 63.4 % (42.0-75.0) 03/16/22 05:31 Lymph % (Auto) 23.4 % (21.0-51.0) 03/16/22 05:31 [place] % (Auto) 10.0 % (0.0-13.0) 03/16/22 05:31 Eos % (Auto) 2.1 % (0.9-2.9) 03/16/22 05:31 Baso % (Auto) 1.1 % (0.2-1.0) H 03/16/22 05:31 Neut # (Auto) 8.0 x10^3/uL (2.2-4.8) H 03/16/22 05:31 Lymph # (Auto) 2.9 X10^3/uL (1.3-2.9) 03/16/22 05:31 [place] # (Auto) 1.3 x10^3/uL (0.3-0.8) H 03/16/22 05:31 Eos # (Auto) 0.3 x10^3/uL (0.0-0.2) H 03/16/22 05:31 Baso # (Auto) 0.1 X10^3/uL (0.0-0.1) 03/16/22 05:31 Absolute Nucleated RBC 0.0 /100WBC 03/16/22 05:31 Sodium 141 mmol/L (136-145) 03/16/22 05:31 Corrected Sodium 142 mmol/L (136-145) 03/16/22 05:31 Potassium 4.1 mmol/L (3.5-5.1) 03/16/22 05:31 Chloride 105 mmol/L (98-107) 03/16/22 05:31 Carbon Dioxide 28.6 mmol/L (21-32) 03/16/22 05:31 BUN 10 mg/dL (7-18) 03/16/22 05:31 Creatinine 1.21 mg/dL (0.70-1.30) 03/16/22 05:31 Est GFR (MDRD) Af Amer > 60 (>60) 03/16/22 05:31 Est GFR (MDRD) Non-Af > 60 (>60) 03/16/22 05:31 Glucose 125 mg/dL (65-99) H 03/16/22 05:31 Calcium 8.3 mg/dL (8.5-10.1) L 03/16/22 05:31 Corrected Calcium 9.0 mg/dL (8.5-10.1) 03/16/22 05:31 Total Bilirubin 0.80 mg/dL (0.2-1.0) 03/16/22 05:31 AST 18 Units/L (15-37) 03/16/22 05:31 ALT 17 Units/L (12-78) 03/16/22 05:31 Alkaline Phosphatase 39 Units/L (46-116) L 03/16/22 05:31 Total Protein 6.2 g/dL (6.4-8.2) L 03/16/22 05:31 Albumin 3.1 g/dL (3.4-5.0) L 03/16/22 05:31 Globulin 3.1 g/dL (2.5-4.5) 03/16/22 05:31 Albumin/Globulin Ratio 1.0 Ratio (1.1-2.1) L 03/16/22 05:31 Lipase 80 Units/L (73-393) 03/13/22 21:10 Specimen Type Clean catch urine 03/13/22 22: Urine Color Pale yellow (YELLOW) 03/13/22 22: Urine Appearance Clear (CLEAR) 03/13/22 22: Urine pH 5.0 (5.0 - 8.0) 03/13/22: Ur Specific [place] 1.020 (1.000-1.030) 03/13/22 22: Urine Protein Negative (NEGATIVE) 03/13/22 22: Urine Glucose (UA) Negative (NEGATIVE) 03/13/22 22: Urine Ketones Negative (NEGATIVE) 03/13/22 22:27 Urine Blood Negative (NEGATIVE) 03/13/22 22:27 Urine Nitrite Negative (NEGATIVE) 03/13/22 22:27 Urine Bilirubin Negative (NEGATIVE) 03/13/22 22:27 Urine Urobilinogen Normal (NORMAL) 03/13/22 22:27 Ur Leukocyte Esterase Negative (NEGATIVE) 03/13/22 22:27 Plan (1) Small bowel obstruction: Status: Acute (2) Constipation: Status: Acute (3) HLD (hyperlipidemia): Status: Acute (4) BPH (benign prostatic hyperplasia): Status: Acute
[2022-03-16] MEDS ORDERED: FLOMAX ONE (11:36)
[2022-03-16] MEDS: FLOMAX PO SCH ×2 (11:49→21:03)
[2022-03-17] MEDS: D5 1/2 NS 1,000 ML 1,000 ML IV SCH ×3 (01:14→17:00)
[2022-03-17 06:10] LABS: BASOPHILS % (AUTO) 0.2 % (0.2-1.0); EOSINOPHILS # (AUTO) 0.3 x10^3/uL (0.0-0.2); EOSINOPHILS % (AUTO) 5.2 % (0.9-2.9); HEMATOCRIT 34.7 % (42.0-54.0); HEMOGLOBIN 12.4 g/dL (13.5-18.0); LYMPHOCYTES # (AUTO) 1.9 X10^3/uL (1.3-2.9); LYMPHOCYTES % (AUTO) 28.8 % (21.0-51.0); MEAN CORPUSCULAR HEMOGLOBIN 30.7 pg (27.0-34.0); MEAN CORPUSCULAR HGB CONC 35.7 g/dL (33.0-35.0); MEAN CORPUSCULAR VOLUME 85.8 fL (80.0-100.0); MONOCYTES # (AUTO) 0.7 x10^3/uL (0.3-0.8); MONOCYTES % (AUTO) 11.1 % (0.0-13.0); NEUTROPHILS # (AUTO) 3.6 x10^3/uL (2.2-4.8); NEUTROPHILS % (AUTO) 54.7 % (42.0-75.0); RED BLOOD COUNT 4.04 X10^6/uL (4.7-6.0); RED CELL DISTRIBUTION WIDTH 12.6 % (11.6-16.5); WHITE BLOOD COUNT 6.6 X10^3/uL (3.6-10.0)
[2022-03-17 06:21] LABS: ALANINE AMINOTRANSFERASE 20 Units/L (12-78); ALBUMIN 2.9 g/dL (3.4-5.0); ALKALINE PHOSPHATASE 37 Units/L (46-116); ASPARTATE AMINO TRANSFERASE 16 Units/L (15-37); BLOOD UREA NITROGEN 10 mg/dL (7-18); CALCIUM 8.3 mg/dL (8.5-10.1); CHLORIDE 107 mmol/L (98-107); COR CA(FOR HYPOALB) 9.2 mg/dL (8.5-10.1); COR NA(FOR HYPERGLY) 144 mmol/L (136-145); CREATININE 1.15 mg/dL (0.70-1.30); SODIUM 143 mmol/L (136-145); TOTAL PROTEIN 5.8 g/dL (6.4-8.2); eGFR NON BLACK RACES > 60 (>60)
--- NOTE | 2022-03-17 08:22 | RAD ---
AXEW[id number] /05/2022FINDINGSThe enteric tube extends into the upper abdomen. At this location, the tip is probably in the body of the stomach.The small bowel is minimally dilated measuring up to 3.1 cm. The amount of gas and dilatation not significantly changed from yesterday. Lung bases are clear. There might be a small left effusion.IMPRESSION1. Enteric tube in the stomachElectronically signed by: Sharad Duong (Mar 17, 2022 08:20:32)
[2022-03-17] MEDS: PROTONIX INJ 40 MG VIAL IVP SCH (08:59)
[2022-03-17] MEDS: LOVENOX INJ 40 MG SYR SC SCH ×2 (09:00→09:23)
--- NOTE | 2022-03-17 11:33 | PCM.PROG ---
Progress Note Progress Note for Day of Date of Exam: 03/17/22 Subjective Subjective: Patient seen at bedside, no events overnight. He reports feeling better. Patient has been having BMs. He has been tolerating clears. Denies N/V. Labs reviewed - CEA normal Plan: Follow Dr Hines's recommendation, Advance diet as tolerated. Follow KUB. Patient likely stable to be discharged home today. Discussed to f/u with PCP and Dr Hines as scheduled. Will sign off. Past Medical Family Social History Past Med/Fam/Surg Hx: No changes since H&P Allergies: Allergies No Known Drug Allergies Allergy (Verified 03/14/22 03:55) Review of Systems ROS: No change since H&P Vital Signs and I&O's Vital Signs: Temperature 97.9 F Pulse Rate [Left] 44 Pulse Rate 59 Respiratory Rate 18 Blood Pressure [Left Arm] 174/79 Blood Pressure 159/83 O2 Sat by Pulse Oximetry 97 Intake and Output: Intake & Output 03/15/22 03/16/22 03/16/22 03/17/22 00:59 00:59 23:59 23:59 Intake Total 1108 / 1108 Output Total 850 / 850 Balance 258 / 258 Physical Exam Oriented: Normal Eyes: Normal Ear: Normal Nose: Normal Throat: Normal Cardiovascular: Normal Auscultation: Bowel Sounds: Normal Tenderness: Normal Skin: Normal Musculoskeletal: Normal Psychiatric: Normal Mood Description: Calm Affect: Normal Speech Pattern: Clear and Appropriate Laboratory and Diagnostics Result Diagrams: 03/17/22 05:37 03/17/22 05:37 Labs: Laboratory WBC 6.6 X10^3/uL (3.6-10.0) 03/17/22 05:37 RBC 4.04 X10^6/uL (4.7-6.0) L 03/17/22 05:37 Hgb 12.4 g/dL (13.5-18.0) L 03/17/22 05:37 Hct 34.7 % (42.0-54.0) L 03/17/22 05:37 MCV 85.8 fL (80.0-100.0) 03/17/22 05:37 MCH 30.7 pg (27.0-34.0) 03/17/22 05:37 MCHC 35.7 g/dL (33.0-35.0) H 03/17/22 05:37 RDW 12.6 % (11.6-16.5) 03/17/22 05:37 Plt Count 186 X10^3/uL (150.0-450.0) 03/17/22 05:37 MPV 8.0 fL (7.4-11.0) 03/17/22 05:37 Neut % (Auto) 54.7 % (42.0-75.0) 03/17/22 05:37 Lymph % (Auto) 28.8 % (21.0-51.0) 03/17/22 05:37 [place] % (Auto) 11.1 % (0.0-13.0) 03/17/22 05:37 Eos % (Auto) 5.2 % (0.9-2.9) H 03/17/22 05:37 Baso % (Auto) 0.2 % (0.2-1.0) 03/17/22 05:37 Neut # (Auto) 3.6 x10^3/uL (2.2-4.8) 03/17/22 05:37 Lymph # (Auto) 1.9 X10^3/uL (1.3-2.9) 03/17/22 05:37 [place] # (Auto) 0.7 x10^3/uL (0.3-0.8) 03/17/22 05:37 Eos # (Auto) 0.3 x10^3/uL (0.0-0.2) H 03/17/22 05:37 Baso # (Auto) 0.0 X10^3/uL (0.0-0.1) 03/17/22 05:37 Absolute Nucleated RBC 0.1 /100WBC 03/17/22 05:37 Sodium 143 mmol/L (136-145) 03/17/22 05:37 Corrected Sodium 144 mmol/L (136-145) 03/17/22 05:37 Potassium 3.6 mmol/L (3.5-5.1) 03/17/22 05:37 Chloride 107 mmol/L (98-107) 03/17/22 05:37 Carbon Dioxide 28.0 mmol/L (21-32) 03/17/22 05:37 BUN 10 mg/dL (7-18) 03/17/22 05:37 Creatinine 1.15 mg/dL (0.70-1.30) 03/17/22 05:37 Est GFR (MDRD) Af Amer > 60 (>60) 03/17/22 05:37 Est GFR (MDRD) Non-Af > 60 (>60) 03/17/22 05:37 Glucose 123 mg/dL (65-99) H 03/17/22 05:37 Calcium 8.3 mg/dL (8.5-10.1) L 03/17/22 05:37 Corrected Calcium 9.2 mg/dL (8.5-10.1) 03/17/22 05:37 Total Bilirubin 0.60 mg/dL (0.2-1.0) 03/17/22 05:37 AST 16 Units/L (15-37) 03/17/22 05:37 ALT 20 Units/L (12-78) 03/17/22 05:37 Alkaline Phosphatase 37 Units/L (46-116) L 03/17/22 05:37 Total Protein 5.8 g/dL (6.4-8.2) L 03/17/22 05:37 Albumin 2.9 g/dL (3.4-5.0) L 03/17/22 05:37 Globulin 2.9 g/dL (2.5-4.5) 03/17/22 05:37 Albumin/Globulin Ratio 1.0 Ratio (1.1-2.1) L 03/17/22 05:37 Lipase 80 Units/L (73-393) 03/13/22 21:10 Carcinoembryonic Ag 1.6 ng/mL 03/14/22 05:20 Specimen Type Clean catch urine 03/13/22 22: Urine Color Pale yellow (YELLOW) 03/13/22 22: Urine Appearance Clear (CLEAR) 03/13/22 22: Urine pH 5.0 (5.0 - 8.0) 03/13/22 22: Ur Specific [place] 1.020 (1.000-1.030) 03/13/22 22: Urine Protein Negative (NEGATIVE) 03/13/22 22: Urine Glucose (UA) Negative (NEGATIVE) 03/13/22 22: Urine Ketones Negative (NEGATIVE) 03/13/22 22: Urine Blood Negative (NEGATIVE) 03/13/22 22:27 Urine Nitrite Negative (NEGATIVE) 03/13/22 22:27 Urine Bilirubin Negative (NEGATIVE) 03/13/22 22:27 Urine Urobilinogen Normal (NORMAL) 03/13/22 22:27 Ur Leukocyte Esterase Negative (NEGATIVE) 03/13/22 22:27 Stl Occult Blood (IFOB) Negative (NEGATIVE) 03/17/22 09:40 Plan (1) Small bowel obstruction: Status: Acute (2) Constipation: Status: Acute (3) HLD (hyperlipidemia): Status: Acute (4) BPH (benign prostatic hyperplasia): Status: Acute
--- NOTE | 2022-03-17 12:17 | RAD ---
HISTORYSBOSTUDYKUB x-ray one viewCOMPARISONX-ray from previous dayFINDINGSMild increased small bowel air is seen without dilation. Appearance is improved from prior study. There is likely moderate diffuse constipation. Phleboliths are seen in the pelvis.IMPRESSIONMild increased small bowel air is seen without dilation, improved from prior study.Electronically signed by: Jonny Jaimes (Mar 17, 2022 12:16:02)
--- NOTE | 2022-03-17 13:48 | DR.PROGNOT ---
Hospital Progress Notes - Progress Note for Day of: Progress Note Date: 03/17/22 - Chief Complaint Chief Complaint: less abdominal pain .. had normal BM , passing flatus .. lab work is normal. abdominal X Ray showed improved ileus. afebrile .. - Past Medical Family Social History Past Med/Fam/Surg Hx: No changes since H&P Allergies: Allergies No Known Drug Allergies Allergy (Verified 03/14/22 03:55) - Review Of Systems ROS: No change since H&P - Vital Signs Vital Signs: Temperature 98.1 F Pulse Rate [Left] 51 Pulse Rate 59 Respiratory Rate 18 Blood Pressure [Left Arm] 174/78 Blood Pressure 159/83 O2 Sat by Pulse Oximetry 97 - Physical Exam Oriented: Normal Eyes: Normal Ear: Normal Nose: Normal Throat: Normal Cardiovascular: Normal GI:Auscultation: Normal GI:Palpation: Other (soft, flat . non tender .. BS+) GI: Tenderness: Normal Skin: Normal Musculoskeletal: Normal Psychiatric: Normal Mood Description: Calm Affect: Normal Speech Pattern: Clear, Appropriate - Laboratory and Diagnostics Result Diagrams: 03/17/22 05:37 03/17/22 05:37 Labs: Laboratory WBC 6.6 X10^3/uL (3.6-10.0) 03/17/22 05:37 RBC 4.04 X10^6/uL (4.7-6.0) L 03/17/22 05:37 Hgb 12.4 g/dL (13.5-18.0) L 03/17/22 05:37 Hct 34.7 % (42.0-54.0) L 03/17/22 05:37 MCV 85.8 fL (80.0-100.0) 03/17/22 05:37 MCH 30.7 pg (27.0-34.0) 03/17/22 05:37 MCHC 35.7 g/dL (33.0-35.0) H 03/17/22 05:37 RDW 12.6 % (11.6-16.5) 03/17/22 05:37 Plt Count 186 X10^3/uL (150.0-450.0) 03/17/22 05:37 MPV 8.0 fL (7.4-11.0) 03/17/22 05:37 Neut % (Auto) 54.7 % (42.0-75.0) 03/17/22 05:37 Lymph % (Auto) 28.8 % (21.0-51.0) 03/17/22 05:37 [place] % (Auto) 11.1 % (0.0-13.0) 03/17/22 05:37 Eos % (Auto) 5.2 % (0.9-2.9) H 03/17/22 05:37 Baso % (Auto) 0.2 % (0.2-1.0) 03/17/22 05:37 Neut # (Auto) 3.6 x10^3/uL (2.2-4.8) 03/17/22 05:37 Lymph # (Auto) 1.9 X10^3/uL (1.3-2.9) 03/17/22 05:37 [place] # (Auto) 0.7 x10^3/uL (0.3-0.8) 03/17/22 05:37 Eos # (Auto) 0.3 x10^3/uL (0.0-0.2) H 03/17/22 05:37 Baso # (Auto) 0.0 X10^3/uL (0.0-0.1) 03/17/22 05:37 Absolute Nucleated RBC 0.1 /100WBC 03/17/22 05:37 Sodium 143 mmol/L (136-145) 03/17/22 05:37 Corrected Sodium 144 mmol/L (136-145) 03/17/22 05:37 Potassium 3.6 mmol/L (3.5-5.1) 03/17/22 05:37 Chloride 107 mmol/L (98-107) 03/17/22 05:37 Carbon Dioxide 28.0 mmol/L (21-32) 03/17/22 05:37 BUN 10 mg/dL (7-18) 03/17/22 05:37 Creatinine 1.15 mg/dL (0.70-1.30) 03/17/22 05:37 Est GFR (MDRD) Af Amer > 60 (>60) 03/17/22 05:37 Est GFR (MDRD) Non-Af > 60 (>60) 03/17/22 05:37 Glucose 123 mg/dL (65-99) H 03/17/22 05:37 Calcium 8.3 mg/dL (8.5-10.1) L 03/17/22 05:37 Corrected Calcium 9.2 mg/dL (8.5-10.1) 03/17/22 05:37 Total Bilirubin 0.60 mg/dL (0.2-1.0) 03/17/22 05:37 AST 16 Units/L (15-37) 03/17/22 05:37 ALT 20 Units/L (12-78) 03/17/22 05:37 Alkaline Phosphatase 37 Units/L (46-116) L 03/17/22 05:37 Total Protein 5.8 g/dL (6.4-8.2) L 03/17/22 05:37 Albumin 2.9 g/dL (3.4-5.0) L 03/17/22 05:37 Globulin 2.9 g/dL (2.5-4.5) 03/17/22 05:37 Albumin/Globulin Ratio 1.0 Ratio (1.1-2.1) L 03/17/22 05:37 Lipase 80 Units/L (73-393) 03/13/22 21:10 Carcinoembryonic Ag 1.6 ng/mL 03/14/22 05:20 Specimen Type Clean catch urine 03/13/22 22: Urine Color Pale yellow (YELLOW) 03/13/22 22: Urine Appearance Clear (CLEAR) 03/13/22 22: Urine pH 5.0 (5.0 - 8.0) 03/13/22 22: Ur Specific [place] 1.020 (1.000-1.030) 03/13/22 22: Urine Protein Negative (NEGATIVE) 03/13/22 22: Urine Glucose (UA) Negative (NEGATIVE) 03/13/22 22: Urine Ketones Negative (NEGATIVE) 03/13/22 22: Urine Blood Negative (NEGATIVE) 03/13/22 22: Urine Nitrite Negative (NEGATIVE) 03/13/22 22: Urine Bilirubin Negative (NEGATIVE) 03/13/22 22: Urine Urobilinogen Normal (NORMAL) 03/13/22 22: Ur Leukocyte Esterase Negative (NEGATIVE) 03/13/22 22: Stl Occult Blood (IFOB) Negative (NEGATIVE) 03/17/22 09:40 - Assessment and Plan 3: resolving ileus ,. OOB , same IVF ,. to advance diet , possible D/c in am - Problem Patient Problems: Patient Problems Small bowel obstruction (Acute) K56.723
[2022-03-17] MEDS: FLOMAX PO SCH (20:47)
[2022-03-17] MEDS ORDERED: LIPITOR TAB 10 MG PO SCH (21:00)
[2022-03-18] MEDS: D5 1/2 NS 1,000 ML 1,000 ML IV SCH ×2 (00:20→08:28)
[2022-03-18 05:58] LABS: BASOPHILS % (AUTO) 0.3 % (0.2-1.0); EOSINOPHILS # (AUTO) 0.4 x10^3/uL (0.0-0.2); EOSINOPHILS % (AUTO) 5.8 % (0.9-2.9); HEMATOCRIT 35.7 % (42.0-54.0); HEMOGLOBIN 12.4 g/dL (13.5-18.0); LYMPHOCYTES # (AUTO) 1.6 X10^3/uL (1.3-2.9); LYMPHOCYTES % (AUTO) 25.5 % (21.0-51.0); MEAN CORPUSCULAR HEMOGLOBIN 29.8 pg (27.0-34.0); MEAN CORPUSCULAR HGB CONC 34.7 g/dL (33.0-35.0); MEAN PLATELET VOLUME 8.4 fL (7.4-11.0); MONOCYTES # (AUTO) 0.7 x10^3/uL (0.3-0.8); MONOCYTES % (AUTO) 10.6 % (0.0-13.0); NEUTROPHILS # (AUTO) 3.6 x10^3/uL (2.2-4.8); NEUTROPHILS % (AUTO) 57.8 % (42.0-75.0); RED BLOOD COUNT 4.15 X10^6/uL (4.7-6.0); WHITE BLOOD COUNT 6.3 X10^3/uL (3.6-10.0)
[2022-03-18 06:15] LABS: ALANINE AMINOTRANSFERASE 32 Units/L (12-78); ALBUMIN 3.1 g/dL (3.4-5.0); ALKALINE PHOSPHATASE 39 Units/L (46-116); ASPARTATE AMINO TRANSFERASE 25 Units/L (15-37); BLOOD UREA NITROGEN 9 mg/dL (7-18); CALCIUM 8.4 mg/dL (8.5-10.1); CARBON DIOXIDE 28.2 mmol/L (21-32); CHLORIDE 108 mmol/L (98-107); COR CA(FOR HYPOALB) 9.1 mg/dL (8.5-10.1); COR NA(FOR HYPERGLY) 145 mmol/L (136-145); CREATININE 1.19 mg/dL (0.70-1.30); SODIUM 144 mmol/L (136-145); TOTAL PROTEIN 6.1 g/dL (6.4-8.2); eGFR NON BLACK RACES > 60 (>60)
[2022-03-18] MEDS: PROTONIX INJ 40 MG VIAL IVP SCH (08:27)
[2022-03-18] MEDS: LOVENOX INJ 40 MG SYR SC SCH (08:28)
[2022-03-18 10:57] VITALS: BP 174/74
== END 2022-03-18 11:50 | disposition home or self-care (01) | DRG 390 ==
LOC: MED/SURG 20:26 → ER 20:26 → OBSVTOIN 23:28 → MED/SURG 03-14 00:12
PROVIDERS: ADMIT Surgery; ATTEND Surgery
DX: R10.84 Generalized abdominal pain; I10 Essential (primary) hypertension; K56.690 Other partial intestinal obstruction; N40.0 Benign prostatic hyperplasia without lower urinary tract symptoms; K59.00 Constipation, unspecified; E78.2 Mixed hyperlipidemia